=== PATIENT | male | born 1930 | race Caucasian/White ===

== ENCOUNTER 2017-03-18 12:25 | Emergency (ER) | payer MEDICARE, OTHER ==
[2017-03-18 13:15] LABS: BILIRUBIN NEGATIVE (NEGATIVE); BLOOD TRACE-INTACT Ery/uL (NEGATIVE); CLARITY CLEAR (CLEAR); COLOR YELLOW (YELLOW); GLUCOSE (U) NORMAL (NORMAL); KETONE (U) NEGATIVE (NEGATIVE); LEUKOCYTES NEGATIVE Leu/uL (NEGATIVE); NITRITE NEGATIVE (NEGATIVE); PROTEIN NEGATIVE (NEGATIVE); SPECIFIC GRAVITY <=1.005 (1.001-1.030); UROBILINOGEN 0.2 mg/dL (0.2-1.0); pH 5.5 (5.0-9.0)
[2017-03-18 13:41] LABS: BASOPHIL 0.2 % (0-2); EOSINOPHIL 3.7 % (0-7); HCT 41.3 % (42.0-52.0); HGB 13.6 g/dl (13.2-18.0); LYMPHOCYTE 21.2 % (15-48); MCH 30.2 pg (25.0-31.0); MCHC 32.9 g/dL (32.0-36.0); MCV 91.6 fL (78.0-100.0); MONOCYTE 15.1 % (0-12); MPV 9.7 fL (6.0-9.5); NEUTROPHIL 59.8 % (41-80); PLT 161 K/uL (150-400); RBC 4.51 M/uL (4.70-6.00); WBC 6.2 K/uL (4.0-10.5)
[2017-03-18 13:48] LABS: ALBUMIN 4.2 g/dL (3.4-4.8); CREATININE 0.9 mg/dL (0.7-1.2); GLOBULIN (CALCULATION) 2.8 g/dL (2.2-4.2); POTASSIUM 4.8 mmol/L (3.5-5.1)
== END 2017-03-18 15:16 | disposition home or self-care (01) ==
LOC: FER 12:25
PROVIDERS: Internal Medicine
DX: R10.9 Unspecified abdominal pain (principal); I10 Essential (primary) hypertension; E78.5 Hyperlipidemia, unspecified; Z88.5 Allergy status to narcotic agent; Z79.82 Long term (current) use of aspirin; Z79.899 Other long term (current) drug therapy
CPT/HCPCS: 36415; 71020; 80053; 81001; 85025; 99284

== ENCOUNTER → 2021-05-03 | Day surgery (SDC) | payer MEDICARE, OTHER ==
[~2021-05-03] VITALS: Ht 180.3 cm; Wt 99.8 kg
[~2021-05-03] MED LIST: 3IN1 COMMODE XX; ASPIRIN CHEWABL81 MG PO; CINNAMON500 MG PO; CLOPIDOGREL75 MG PO; ENDOCET 5-3251 EACH PO; FEOSOL325 MG PO; FOLIC ACID1 MG PO; HCTZ12.5 MG PO; HYDROCODON-ACE1 EAC4 PO; IRON18 MG PO; ISOSORBIDE MONO60 MG PO; LIPITOR40 MG PO; MACROBID100 MG PO; MELATONIN5 M2 PO; MICON-GUARD 2% TOP; NORVASC10 MG PO; PANTOPRAZOLE SO40 MG PO; PHENASEPTIC177 ML PO; POTASSIUM CHLO10 ME1 PO; PROBIOTIC1 EAC1 PO; VITAMIN D350 MC2 PO; XARELTO10 MG PO; ZOCOR40 MG PO
== END | disposition home or self-care (01) ==
LOC: FAS 08:15
DX: Z08 Encounter for follow-up examination after completed treatment for malignant neoplasm (principal); K64.4 Residual hemorrhoidal skin tags; K63.89 Other specified diseases of intestine; K43.2 Incisional hernia without obstruction or gangrene; R60.0 Localized edema; D64.9 Anemia, unspecified; I25.10 Atherosclerotic heart disease of native coronary artery without angina pectoris; K21.9 Gastro-esophageal reflux disease without esophagitis; I10 Essential (primary) hypertension; E78.5 Hyperlipidemia, unspecified; M16.9 Osteoarthritis of hip, unspecified; Z85.038 Personal history of other malignant neoplasm of large intestine; Z95.5 Presence of coronary angioplasty implant and graft; Z88.5 Allergy status to narcotic agent; Z79.82 Long term (current) use of aspirin; Z79.02 Long term (current) use of antithrombotics/antiplatelets; Z79.899 Other long term (current) drug therapy
CPT/HCPCS: J2704; J7120